=== PATIENT | male | born 1995 | race Hispanic/Latino ===

== ENCOUNTER 2024-11-18 12:45 | Emergency (ER) | payer SELFPAY ==
[2024-11-18] MEDS ORDERED: ONDANSETRON 4 MG/2 ML VIAL ONE (12:58)
[2024-11-18] MEDS ORDERED: CEFAZOLIN SODIUM 1 GM/VIAL ONE (12:59)
[2024-11-18] MEDS ORDERED: NA CHLORIDE 0.9% 1,000 ML ONE (12:59)
[2024-11-18] MEDS ORDERED: MORPHINE 4 MG/ML SYR ONE (12:59)
[2024-11-18] MEDS ORDERED: NA CHLORIDE 0.9% 100 ML ONE (13:00)
[2024-11-18 13:11] LABS: Absolute Eosinophils 0.1 K/uL (0-0.5); Absolute Lymphocytes (CBC) 2.2 K/uL (0.7-4.9); Absolute Monocytes 0.7 K/uL (0.1-1.3); Absolute Neutrophil 12.6 K/uL (1.8-8.0); Basophils % 0.2 % (0-1.3); Eosinophils % 0.6 % (0-4.4); Hematocrit 49.6 % (39.6-49.0); Hemoglobin 17.2 g/dL (13.6-17.9); MCH 29.6 pg (27.0-35.0); MCHC 34.7 g/dL (32.0-36.0); MCV 85.2 fL (80-100); MPV 6.9 fL (7.6-11.3); Monocytes % 4.3 % (3.3-12.3); Neutrophils % 80.9 % (41.7-73.7); Nucleated Red Blood Cells % 0.1 % (0-0); Platelets 428 thou/uL (152-406); RBC Red Blood Cell Count 5.82 M/uL (4.33-5.43); Red Cell Distribution Width 14.2 % (12.1-15.2)
[2024-11-18 13:18] LABS: PT Prothrombin Time 13.1 SECONDS (10-13.0); Protime INR 1.16
[2024-11-18 13:25] LABS: Anion Gap 9.5 mEq/L (5.0-15.0); Potassium 3.5 mEq/L (3.5-5.1)
--- NOTE | 2024-11-18 13:40 | ER ---
Nurse's Notes [facility] Name: Parker Barrett Age: 29 yrs Sex: Male : 1995 Arrival Date: 11/18/2024 Time: 12:45 Bed 2 Private MD: Diagnosis: Complex laceration to the left wrist, complex laceration to left hand Presentation: 11/18 12:47 Chief complaint: Patient states: fell on some rocks, deep laceration to left wrist. iw Coronavirus screen: At this time, the client does not indicate any symptoms associated with coronavirus-19. Ebola Screen: No symptoms or risks identified at this time. Initial Sepsis Screen: Does the patient meet any 2 criteria? Does the patient have a suspected source of infection? No. Patient's initial sepsis screen is negative. Risk Assessment: Do you want to hurt yourself or someone else? Patient reports no desire to harm self or others. Onset of symptoms. 12:47 Method Of Arrival: Ambulatory iw 12:47 Acuity: CHANTEL 3 iw Triage Assessment: 13:00 General: Appears in no apparent distress. uncomfortable, Behavior is cooperative, bp appropriate for age, anxious. Pain: Complains of pain in left arm. EENT: No deficits noted. Neuro: No deficits noted. Cardiovascular: No deficits noted. Respiratory: No deficits noted. GI: No signs and/or symptoms were reported involving the gastrointestinal system. : No signs and/or symptoms were reported regarding the genitourinary system. Derm: No deficits noted. Musculoskeletal: No deficits noted. Injury Description: Laceration sustained to left wrist is full thickness, jagged, 2.6 to 7.5 cm long, not bleeding, was sustained 30-60 minutes ago. moderate bleeding noted at this time. Historical: - Allergies: 12:48 No Known Allergies; iw - Home Meds: 12:48 None [Active]; iw - PMHx: 12:48 None; iw - PSHx: 12:48 None; iw - Immunization history:: Adult Immunizations not up to date. - Infectious Disease History:: Denies. - Social history:: Smoking status: Patient denies any tobacco usage or history of. Screenin:54 [facility] ED Fall Risk Assessment (Adult) History of falling in the last 3 months, iw including since admission Yes- single mechanical fall (1 pt) Confusion or Disorientation No (0 pts) Intoxicated or Sedated No (0 pts) Impaired Gait No (0 pts) Mobility Assist Device Used No (0 pt) Altered Elimination No (0 pt) Score/Fall Risk Level 0 - 2 = Low Risk Oriented to surroundings, Maintained a safe environment. Abuse screen: Denies threats or abuse. Denies injuries from another. Nutritional screening: No deficits noted. Tuberculosis screening: No symptoms or risk factors identified. Assessment: 12:52 General: Appears in no apparent distress. Behavior is calm, cooperative. Pain: iw Complains of pain in left wrist Pain currently is 5 out of 10 on a pain scale. Neuro: Level of Consciousness is awake, alert, obeys commands, Oriented to person, place, time, situation, Moves all extremities. Derm: Skin is healthy with good turgor. Musculoskeletal: Range of motion: intact in left wrist. Injury Description: Laceration sustained to left wrist is full thickness, jagged, 2.6 to 7.5 cm long, not bleeding, was sustained 30-60 minutes ago. A dressing was applied. 14:04 Reassessment: No changes from previously documented assessment. Patient is alert, bp oriented x 3, equal unlabored respirations, skin warm/dry/pink. 14:43 Reassessment: TRANSFER DEFERRED BY RECEIVING FACILITY. PER HAND SURGEON, LAC TO BE bp REPAIRED WITH F/U IN CLINIC. Vital Signs: 12:47 BP 150 / 102; Pulse 119; Resp 18; Temp 98.9; Pulse Ox 100% on R/A; Weight 68.04 kg; iw Height 5 ft. 3 in. ; Pain 5/10; 14:56 BP 168 / 98; Pulse 104; Resp 20; Pulse Ox 97% ; bp 16:22 BP 163 / 94; Pulse 100; Resp 15; Pulse Ox 97% ; bp 12:47 Body Mass Index 26.57 (68.04 kg, 160.02 cm) iw 12:47 Pain Scale: Adult iw ED Course: 12:46 Patient arrived in ED. sp3 12:46 Kristian Heredia MD is Attending Physician. sp3 12:48 Triage completed. iw 12:51 Sharad Sommer, MAGY is Primary Nurse. bp 12:52 Arm band placed on. iw 12:59 Inserted saline lock: 22 gauge in right antecubital area, using aseptic technique. nh2 Blood collected. Flushed with 10 mL NS. 12:59 Basic Metabolic Panel Sent. nh2 12:59 CBC with Diff Sent. nh2 12:59 PT-INR Sent. nh2 13:28 Hand Left 3 View XRAY In Process Unspecified. EDMS 14:44 Patient has correct armband on for positive identification. bp 16:23 Provided Education on: NA. bp 16:23 Assist provider with laceration repair on left wrist that was between 2.6 to 7.5 cm bp using sutures. Set up tray. Performed by Myron RANDALL Dressed with 4X4s, Patient tolerated well. IV discontinued, intact, bleeding controlled, No redness/swelling at site. Pressure dressing applied. Administered Medications: 13:10 Drug: NS 0.9% IV 1000 ml IV at 1 bolus Per protocol; to be given as a bolus over 60 bp minutes Route: IV; Rate: 1 bolus; Site: right antecubital; 16:24 Follow up: IV Status: Completed infusion bp 13:10 Drug: morphine IVP or IV 4 mg IVP once over 4 mins Route: IVP; Infused Over: 4 mins; bp Site: right antecubital; 16:24 Follow up: Response: No adverse reaction bp 13:11 Drug: Ondansetron IVP 4 mg IVP once; over 2 minutes Route: IVP; Site: right antecubital;bp 16:24 Follow up: Response: No adverse reaction bp 13:11 Drug: ceFAZolin IVPB 1 grams IVPB once Route: IVPB; Site: right antecubital; bp 16:24 Follow up: IV Status: Completed infusion bp 15:14 Drug: Lidocaine-Epinephrine Infiltration -1%: (1:100,000) 20 ml 20 ml Infiltration bp once; to bedside Volume: 20 ml; Route: Infiltration; Medication: 16:23 VIS not applicable for this client. bp Outcome: 13:40 ER care complete, transfer ordered by MD. begum 15:59 Discharge ordered by MD. begum 16:23 Discharged to home ambulatory, with family, bp 16:23 Condition: stable 16:23 Discharge instructions given to patient, Instructed on discharge instructions, follow up and referral plans. medication usage, wound care, Demonstrated understanding of instructions, follow-up care, medications, wound care, Prescriptions given X 1, 16:25 Patient left the ED. bp Signatures: Dispatcher [employer] Elodia Dsouza, MAGY RN iw Sharad Sommer RN RN bp Kristian Heredia MD MD sp3 Isaias , [facility] Corrections: (The following items were deleted from the chart) 12:50 12:47 Pulse 119bpm; Resp 18bpm; Pulse Ox 100% RA; iw iw 12:54 12:47 BP 150 / 102; Pulse 119bpm; Resp 18bpm; Pulse Ox 100% RA; iw iw
--- NOTE | 2024-11-18 13:40 | EDPHYS ---
Physician Documentation [facility] Name: Parker Barrett Age: 29 yrs Sex: Male : 1995 Arrival Date: 11/18/2024 Time: 12:45 Bed 2 Private MD: ED Physician Kristian Heredia HPI: 11/18 13:00 This 29 yrs old Male presents to ER via Ambulatory with complaints of Wrist Injury, sp3 Laceration To Hand. 13:00 21-year-old male with no past medical history presents with injuries from a mechanical sp3 fall while hiking. Patient fell on his left wrist with significant laceration and contamination from dirt coupled with abrasions on his upper part of his left upper extremity. No other injury, head injury reported. Patient states it was bleeding "significantly" presents with tourniquet at the left forearm.. Historical: - Allergies: 12:48 No Known Allergies; iw - Home Meds: 12:48 None [Active]; iw - PMHx: 12:48 None; iw - PSHx: 12:48 None; iw - Immunization history:: Adult Immunizations not up to date. - Infectious Disease History:: Denies. - Social history:: Smoking status: Patient denies any tobacco usage or history of. ROS: 13:04 Constitutional: Negative for fever, chills, and weight loss, Eyes: Negative for injury, sp3 pain, redness, and discharge, ENT: Negative for injury, pain, and discharge, Neck: Negative for injury, pain, and swelling, Cardiovascular: Negative for chest pain, palpitations, and edema, Respiratory: Negative for shortness of breath, cough, wheezing, and pleuritic chest pain, Abdomen/GI: Negative for abdominal pain, nausea, vomiting, diarrhea, and constipation, Back: Negative for injury and pain, Neuro: Negative for headache, weakness, numbness, tingling, and seizure, Psych: Negative for depression, anxiety, suicide ideation, homicidal ideation, and hallucinations, Allergy/Immunology: Negative for hives, rash, and allergies, Endocrine: Negative for neck swelling, polydipsia, polyuria, polyphagia, and marked weight changes, 13:04 All other systems are negative, Exam: 13:04 Constitutional: This is a well developed, well nourished patient who is awake, alert, sp3 and in no acute distress. Head/Face: Normocephalic, atraumatic. Eyes: Pupils equal round and reactive to light, extra-ocular motions intact. Lids and lashes normal. Conjunctiva and sclera are non-icteric and not injected. Cornea within normal limits. Periorbital areas with no swelling, redness, or edema. Neck: Trachea midline, no thyromegaly or masses palpated, and no cervical lymphadenopathy. Supple, full range of motion without nuchal rigidity, or vertebral point tenderness. No Meningismus. Chest/axilla: Normal chest wall appearance and motion. Nontender with no deformity. No lesions are appreciated. Cardiovascular: Regular rate and rhythm with a normal S1 and S2. No gallops, murmurs, or rubs. Normal PMI, no JVD. No pulse deficits. Respiratory: Lungs have equal breath sounds bilaterally, clear to auscultation and percussion. No rales, rhonchi or wheezes noted. No increased work of breathing, no retractions or nasal flaring. Neuro: Awake and alert, GCS 15, oriented to person, place, time, and situation. Cranial nerves II-XII grossly intact. Motor strength 5/5 in all extremities. Sensory grossly intact. Cerebellar exam normal. Normal gait. Psych: Awake, alert, with orientation to person, place and time. Behavior, mood, and affect are within normal limits. 13:04 Musculoskeletal/extremity: Patient has a approximately 6 cm laceration on the anterior left wrist just proximal to the flexor retinaculum extending distally over the retinaculum into the palm of the hand. In addition to the retinaculum, tendon structures are visible. Tendon function appears to be preserved. Distal capillary refill is preserved. Multiple abrasions and superficial lacerations on the proximal part of the extremity are present as well. No significant bleeding currently.. Vital Signs: 12:47 BP 150 / 102; Pulse 119; Resp 18; Temp 98.9; Pulse Ox 100% on R/A; Weight 68.04 kg; iw Height 5 ft. 3 in. ; Pain 5/10; 14:56 BP 168 / 98; Pulse 104; Resp 20; Pulse Ox 97% ; bp 16:22 BP 163 / 94; Pulse 100; Resp 15; Pulse Ox 97% ; bp 12:47 Body Mass Index 26.57 (68.04 kg, 160.02 cm) iw 12:47 Pain Scale: Adult iw MDM: 12:46 Medical Screening Exam initiated sp3 13:06 Data reviewed: vital signs, nurses notes, lab test result(s), radiologic studies. ED sp3 course: Complex laceration involving the left wrist and hand contaminated in nature. I have not aggressively explored the wound given complexity and risk of bleeding we will be transferring for hand surgery to evaluate. Patient will likely need operative washout and possible alternate forms of anesthesia other than local for adequate repair without blurring edges. Will defer to surgical team. Anc 1 g ordered an x-ray pending to ensure no fracture. Wound has been wrapped.. 14:50 ED course: Discussed with [facility] hand surgery. They recommend washing out and sp3 closing wound and following up in the clinic since there are no deficits. We will proceed with local anesthesia, extensively cleaned, examined tendon and wound properly under full range of motion and perform multilayered closure.. 15:58 ED course: Laceration repaired by physician metallurgical laboratory assistant. Phone number to [place] [employer] sp3 given [phone] for follow-up. Will discharge patient on doxycycline.. 11/18 12:50 Order name: Basic Metabolic Panel; Complete Time: 13:32 sp3 11/18 12:50 Order name: CBC with Diff; Complete Time: 13:32 sp3 11/18 12:50 Order name: PT-INR; Complete Time: 13:32 sp3 11/18 12:47 Order name: Hand Left 3 View XRAY; Complete Time: 14:48 sp3 11/18 12:47 Order name: NPO; Complete Time: 12:55 sp3 11/18 12:50 Order name: Labs collected and sent; Complete Time: 13:00 sp3 Administered Medications: 13:10 Drug: NS 0.9% IV 1000 ml IV at 1 bolus Per protocol; to be given as a bolus over 60 bp minutes Route: IV; Rate: 1 bolus; Site: right antecubital; 16:24 Follow up: IV Status: Completed infusion bp 13:10 Drug: morphine IVP or IV 4 mg IVP once over 4 mins Route: IVP; Infused Over: 4 mins; bp Site: right antecubital; 16:24 Follow up: Response: No adverse reaction bp 13:11 Drug: Ondansetron IVP 4 mg IVP once; over 2 minutes Route: IVP; Site: right antecubital;bp 16:24 Follow up: Response: No adverse reaction bp 13:11 Drug: ceFAZolin IVPB 1 grams IVPB once Route: IVPB; Site: right antecubital; bp 16:24 Follow up: IV Status: Completed infusion bp 15:14 Drug: Lidocaine-Epinephrine Infiltration -1%: (1:100,000) 20 ml 20 ml Infiltration bp once; to bedside Volume: 20 ml; Route: Infiltration; Disposition Summary: 11/18/24 15:59 Discharge Ordered Condition: Stable(11/18/24 15:59) sp3 Diagnosis - Complex laceration to the left wrist, complex laceration to left hand sp3 Discharge Instructions: - Discharge Summary Sheet sp3 - Laceration Care, Adult sp3 Forms: - Work release form iw - Medication Reconciliation Form sp3 - Antibiotic Education sp3 - Prescription Opioid Use sp3 - Patient Portal Instructions sp3 - Leadership Thank You Letter sp3 Prescriptions: - Tramadol 50 mg Oral Tablet - take 1 tablet ORAL route every 8 hours as needed; 12 tablet; Refills: 0, sp3 Product Selection Permitted - Doxycycline Monohydrate 100 mg Oral Tablet - take 1 tablet ORAL route every 12 hours for 10 days; 20 tablet; Refills: 0, sp3 Product Selection Permitted Signatures: Dispatcher [employer] EDElodia Pina RN RN iw Peltier, Brian, RN RN bp Patel, Setul, MD MD sp3 Myron Vazquez, CANDLE MOLDER-C CANDLE MOLDER-Cdr5 Corrections: (The following items were deleted from the chart) 12:50 12:50 BASIC METABOLIC PANEL+C.LAB.BRZ ordered. EDMS EDMS 12:50 12:50 CBC+H.LAB.BRZ ordered. EDMS EDMS 12:50 12:50 PROTIME (+INR)+COAG.LAB.BRZ ordered. EDMS EDMS 14:50 13:40 trauma / hand team sp3 sp3 14:50 13:40 [facility] sp3 sp3 14:50 13:40 Higher level of care sp3 sp3 14:50 13:40 Stable sp3 sp3 14:50 13:40 new sp3 sp3 14:50 13:40 are unchanged sp3 sp3 14:50 13:40 Complex laceration left wrist and left hand, mechanical fall sp3 sp3 15:01 14:50 ED course: Discussed with [facility] hand surgery. They recommend washing sp3 out and closing wound and following up in the clinic since there are no deficits. Has not. sp3
--- NOTE | 2024-11-18 14:35 | RAD REPORT ---
EXAM: XR Hand Left 3 View HISTORY: trauma/laceration; assess FB too COMPARISON: None TECHNIQUE: 3 radiographic views of the LEFT hand submitted. FINDINGS: No evidence of acute fracture or dislocation. Joint alignment is maintained. Palmar soft t issue swelling, with crescentic radiodensities along proximal 2nd digit. No significant degenerative changes are present. IMPRESSION: Palmar soft tissue swelling, with crescentic radiodensities along proximal 2nd digit, may suggest kinjal ris or small foreign bodies.
[2024-11-18] MEDS ORDERED: LIDOCAINE 2% W/EPI 1:200,000 MPF 20 ML VIAL IM ONE (14:43)
[2024-11-18 16:34] VITALS: TEMP 98.9
[2024-11-18 16:44] VITALS: O2SAT 97
[2024-11-18 16:49] VITALS: BP 163/94
== END 2024-11-18 16:25 | disposition home or self-care (01) ==
LOC: ER 12:45
DX: S61.512A Laceration without foreign body of left wrist, initial encounter (principal); S61.412A Laceration without foreign body of left hand, initial encounter; W18.30XA Fall on same level, unspecified, initial encounter; Y93.01 Activity, walking, marching and hiking
CPT/HCPCS: 36415; 80048; 85025; 85610; 96365; 96366; 96375; 99284; J0690; J2405; J7030